=== PATIENT | female | born 1985 | race African-American/Black ===

== ENCOUNTER 2020-12-21 19:01 | Day surgery (SDC) | payer BC, SELFPAY ==
[2020-12-21] MEDS ORDERED: hydrALAZINE 20 MG/ML VIAL SLOW IVP PRN (19:22)
== END 2020-12-21 20:13 | disposition home health service (06) ==
LOC: CSHLD/OP 19:01 → CSHERS 19:01 → CSHLD/OP 20:13
PROVIDERS: ATTEND Obstetrics & Gynecology
DX: O26.852 Spotting complicating pregnancy, second trimester (principal); O34.211 Maternal care for low transverse scar from previous cesarean delivery; Z3A.20 20 weeks gestation of pregnancy
CPT/HCPCS: 76815; 99283